=== PATIENT | male | born 1935 | race Caucasian/White ===

== ENCOUNTER 2017-01-30 10:36 | Outpatient (CLI) | payer MEDICARE ==
[2017-01-30 11:25] LABS: #Basophils 0.1 thou/uL (0.0-0.2); #Eosinphils 0.1 thou/uL (0.0-0.7); #Lymphocytes 1.6 thou/uL (1.20-3.40); #Monocytes 0.8 thou/uL (0.11-0.59); #Neutrophils 4.3 thou/uL (1.40-6.50); %Basophils 1.4 % (0.0-1.0); %Eosinophils 1.7 % (0.0-10.0); %Lymphocytes 23.3 % (21.0-51.0); %Neutrophils 61.6 % (42.0-75.0); Hemoglobin 15.1 g/dL (14.0-18.0); Mean Corpuscular HGB CONC 34.1 g/dL (32.0-36.0); Mean Corpuscular Hemoglobin 30.4 pg (27.0-31.0); Mean Corpuscular Volume 88.9 fl (80.0-94.0); Mean Platelet Volume 7.2 fL (7.4-10.4); Platelet Count 210 thou/uL (130-400); RBC Distribution Width 13.1 % (11.5-14.5); Red Blood Cell (RBC) Count 4.96 mill/uL (4.70-6.10)
[2017-01-30 11:30] LABS: ALT (SGPT) 12 U/L (8-55); AST (SGOT) 15 U/L (5-34); Albumin 4.1 g/dL (3.4-4.8); Alkaline Phosphatase 82 U/L (40-150); Anion Gap 14 mmol/L (10-20); BUN (Urea Nitrogen) 24 mg/dL (8.4-25.7); Bilirubin, Total 0.6 mg/dL (0.2-1.2); Calc. Creatinine Clearance 0 mL/min (70-130); Calcium 9.3 mg/dL (7.8-10.44); Carbon Dioxide 23 mmol/L (23-31); Cardiac Risk 4.3 (Less than 4.5); Chloride 109 mmol/L (98-107); Cholesterol 182 mg/dL (< 200 Desired); Estimated GFR-MDRD 41; Glucose 77 mg/dL (83-110); HDL Cholesterol 42 mg/dL (>60 Neg Risk); LDL Cholesterol, Calculated 122 mg/dL; Potassium 4.3 mmol/L (3.5-5.1); Protein, Total 7.1 g/dL (5.8-8.1); Sodium 142 mmol/L (136-145); Triglycerides 90 mg/dL (Less than 150)
== END 2017-01-30 10:37 | disposition home or self-care (01) ==
LOC: HPCALD 10:36
PROVIDERS: ATTEND Family Medicine
DX: I10 Essential (primary) hypertension (principal); E78.2 Mixed hyperlipidemia
CPT/HCPCS: 36415; 80053; 80061; 84443; 85025

== ENCOUNTER 2017-04-17 16:32 | Outpatient (CLI) | payer MEDICARE ==
[2017-04-17 17:01] LABS: #Basophils 0.1 thou/uL (0.0-0.2); #Eosinphils 0.1 thou/uL (0.0-0.7); #Lymphocytes 1.6 thou/uL (1.20-3.40); #Neutrophils 5.1 thou/uL (1.40-6.50); %Basophils 1.5 % (0.0-1.0); %Eosinophils 1.8 % (0.0-10.0); %Lymphocytes 19.8 % (21.0-51.0); %Monocytes 12.7 % (0.0-10.0); %Neutrophils 64.2 % (42.0-75.0); Hemoglobin 14.3 g/dL (14.0-18.0); Mean Corpuscular HGB CONC 33.6 g/dL (32.0-36.0); Mean Corpuscular Hemoglobin 29.5 pg (27.0-31.0); Mean Corpuscular Volume 87.7 fl (80.0-94.0); Platelet Count 230 thou/uL (130-400); RBC Distribution Width 11.9 % (11.5-14.5); Red Blood Cell (RBC) Count 4.85 mill/uL (4.70-6.10)
[2017-04-17 17:52] LABS: ALT (SGPT) 16 U/L (8-55); AST (SGOT) 15 U/L (5-34); Albumin 4.3 g/dL (3.4-4.8); Alkaline Phosphatase 67 U/L (40-150); Anion Gap 17 mmol/L (10-20); BUN (Urea Nitrogen) 27 mg/dL (8.4-25.7); Bilirubin, Total 0.8 mg/dL (0.2-1.2); Calc. Creatinine Clearance 0 mL/min (70-130); Calcium 9.7 mg/dL (7.8-10.44); Carbon Dioxide 25 mmol/L (23-31); Chloride 104 mmol/L (98-107); Estimated GFR-MDRD 31; Globulin 3.1 g/dL (2.4-3.5); Glucose 89 mg/dL (83-110); Potassium 4.6 mmol/L (3.5-5.1); Protein, Total 7.4 g/dL (5.8-8.1); Sodium 141 mmol/L (136-145)
--- NOTE | 2017-04-18 07:45 | RAD ---
CHEST TWO VIEWS 04/17/17 Comparison is made with a 02/16/16 study from [facility]. The heart is normal in size and the lungs are clear. No infiltrate or effusion was seen. The mediast inum was unremarkable. Moderate degenerative changes are present in the thoracic spine. IMPRESSION: Stable exam showing no acute finding. POS: HOME
== END 2017-04-17 16:33 | disposition home or self-care (01) ==
LOC: BUREKG 16:32
PROVIDERS: ATTEND Family Medicine
DX: Z01.818 Encounter for other preprocedural examination (principal)
CPT/HCPCS: 36415; 71020; 80053; 85025

== ENCOUNTER 2017-04-24 09:21 | Outpatient (CLI) | payer MEDICARE ==
[2017-04-24 10:28] LABS: Anion Gap 13 mmol/L (10-20); BUN (Urea Nitrogen) 24 mg/dL (8.4-25.7); BUN/Creatinine Ratio 12.24; Calc. Creatinine Clearance 0 mL/min (70-130); Calcium 9.3 mg/dL (7.8-10.44); Carbon Dioxide 25 mmol/L (23-31); Chloride 107 mmol/L (98-107); Estimated GFR-MDRD 33; Glucose 97 mg/dL (83-110); Potassium 5.1 mmol/L (3.5-5.1); Sodium 140 mmol/L (136-145)
[2017-04-24 10:41] LABS: PSA-Symptomatic (DIAGNOSTIC) 10.56 ng/mL (0-4.0); Vitamin D, 25 Hydroxy 60.9 ng/ml (> 30.0)
--- NOTE | 2017-04-24 17:36 | ULT ---
BILATERAL RENAL ULTRASOUND 04/24/17 Ultrasonography of the kidneys was performed. No mass or hydronephrosis was seen in either. Cortex w as ample around each. The right kidney measured 9.6 x 4.3 x 3.5 cm and the left measured 10.2 x 5.5 x 4.6 cm. Images through the urinary bladder showed bilateral ureteral jets. The prostate is quite large and v ken irregular. The technologist measured it at 10.2 x 7.7 x 8.6 cm. Given the somewhat irregular timmy ure of its features, further investigation would be in order. IMPRESSION: 1. No significant renal findings. 2. Markedly enlarged, irregular prostate. Followup recommended. Code T POS: HOME
[2017-04-24 18:07] LABS: Phosphorus 3.1 mg/dL (2.3-4.7)
[2017-04-24 18:24] LABS: Creatinine, Urine 69.2 mg/dL (63-166); Microalbumin/Creat Ratio 187.9 mg/g (Less than 30)
== END 2017-04-24 09:22 | disposition home or self-care (01) ==
LOC: BURULT 09:21
PROVIDERS: ATTEND Family Medicine
DX: N18.3 Chronic kidney disease, stage 3 (moderate) (principal); R97.20 Elevated prostate specific antigen [PSA]; N40.0 Benign prostatic hyperplasia without lower urinary tract symptoms
CPT/HCPCS: 36415; 76770; 80069; 82043; 82306; 83970; 84153; 84165; 84166

== ENCOUNTER 2017-05-31 13:40 | Inpatient (IN) | payer MEDICARE ==
[2017-05-31 14:08] LABS: #Basophils 0.1 thou/uL (0.0-0.2); #Eosinphils 0.1 thou/uL (0.0-0.7); #Lymphocytes 1.5 thou/uL (1.20-3.40); #Monocytes 1.6 thou/uL (0.11-0.59); #Neutrophils 9.6 thou/uL (1.40-6.50); %Basophils 0.9 % (0.0-1.0); %Eosinophils 0.7 % (0.0-10.0); %Lymphocytes 11.4 % (21.0-51.0); %Monocytes 12.1 % (0.0-10.0); %Neutrophils 74.8 % (42.0-75.0); Hemoglobin 12.5 g/dL (14.0-18.0); Mean Corpuscular HGB CONC 32.5 g/dL (32.0-36.0); Mean Corpuscular Hemoglobin 29.1 pg (27.0-31.0); Mean Corpuscular Volume 89.7 fl (80.0-94.0); Mean Platelet Volume 6.2 fL (7.4-10.4); Platelet Count 282 thou/uL (130-400); RBC Distribution Width 12.1 % (11.5-14.5); Red Blood Cell (RBC) Count 4.29 mill/uL (4.70-6.10); White Blood Cell (WBC) Count 12.8 thou/uL (4.8-10.8)
[2017-05-31 14:23] LABS: ALT (SGPT) 22 U/L (8-55); AST (SGOT) 21 U/L (5-34); Albumin 3.6 g/dL (3.4-4.8); Alkaline Phosphatase 72 U/L (40-150); Anion Gap 15 mmol/L (10-20); BUN (Urea Nitrogen) 26 mg/dL (8.4-25.7); Bilirubin, Total 0.5 mg/dL (0.2-1.2); Calc. Creatinine Clearance 0 mL/min (70-130); Calcium 9.6 mg/dL (7.8-10.44); Carbon Dioxide 30 mmol/L (23-31); Chloride 97 mmol/L (98-107); Estimated GFR-MDRD 35; Globulin 3.9 g/dL (2.4-3.5); Glucose 88 mg/dL (83-110); Potassium 3.2 mmol/L (3.5-5.1); Protein, Total 7.5 g/dL (5.8-8.1); Sodium 139 mmol/L (136-145)
[2017-05-31 14:25] LABS: CKMB 0.9 ng/mL (0-6.6); Troponin I 0.026 ng/mL (< 0.028)
[2017-05-31] MEDS ORDERED: Melatonin 3 MG TAB PO PRN (18:04)
[2017-05-31] MEDS: Acetaminophen 325 MG TAB PO PRN (18:31)
--- NOTE | 2017-05-31 19:52 | RAD ---
PORTABLE CHEST 05/31/17 An AP portable film at 1356 is compared with a 04/17/17 study. An infiltrate is present in the right lung base. There is some mild increase in size of the hilum wh ich may be due to adenopathy, but other studies would be needed to confirm it. The left lung is donna r. The upper lobes are clear. The heart is normal in size. There are no large effusions or congestiv e changes. IMPRESSION: New right basilar infiltrate consistent with pneumonia. Code T POS: HOME
[2017-05-31] MEDS: Atorvastatin Calcium 10 MG TAB PO SCH (20:36)
[2017-05-31] MEDS: [UNRECOGNIZED DRUG - OTHER] PO SCH (20:39)
[2017-06-01 06:17] LABS: #Basophils 0.1 thou/uL (0.0-0.2); #Eosinphils 0.1 thou/uL (0.0-0.7); #Lymphocytes 0.8 thou/uL (1.20-3.40); #Monocytes 1.1 thou/uL (0.11-0.59); #Neutrophils 9.1 thou/uL (1.40-6.50); %Basophils 0.6 % (0.0-1.0); %Eosinophils 0.7 % (0.0-10.0); %Lymphocytes 7.3 % (21.0-51.0); %Monocytes 10.2 % (0.0-10.0); %Neutrophils 81.2 % (42.0-75.0); Hemoglobin 11.6 g/dL (14.0-18.0); Mean Corpuscular Hemoglobin 29.5 pg (27.0-31.0); Mean Corpuscular Volume 89.3 fl (80.0-94.0); Mean Platelet Volume 6.2 fL (7.4-10.4); Platelet Count 275 thou/uL (130-400); RBC Distribution Width 12.4 % (11.5-14.5); Red Blood Cell (RBC) Count 3.92 mill/uL (4.70-6.10); White Blood Cell (WBC) Count 11.2 thou/uL (4.8-10.8)
[2017-06-01 06:46] LABS: Anion Gap 17 mmol/L (10-20); BUN (Urea Nitrogen) 23 mg/dL (8.4-25.7); Calc. Creatinine Clearance 35 mL/min (70-130); Calcium 8.9 mg/dL (7.8-10.44); Carbon Dioxide 28 mmol/L (23-31); Chloride 99 mmol/L (98-107); Estimated GFR-MDRD 41; Glucose 102 mg/dL (83-110); Potassium 3.7 mmol/L (3.5-5.1); Sodium 140 mmol/L (136-145)
[2017-06-01] MEDS ORDERED: Hydrochlorothiazide 25 MG TAB PO SCH (09:00)
[2017-06-01] MEDS: Potassium Chloride 20 MEQ TAB PO SCH (09:01)
[2017-06-01] MEDS: Vitami E (Dl,Tocopheryl Acet) 400 UNITS CAP PO SCH (09:01)
[2017-06-01] MEDS: Multivitamin W/ Minerals 1 TAB PO SCH (09:02)
[2017-06-01] MEDS: Losartan Potassium 50 MG TAB PO SCH (09:02)
[2017-06-01] MEDS: Tamsulosin HCl 0.4 MG CAP PO SCH (09:02)
[2017-06-01] MEDS: Aspirin 81 mg Enteric Coated Tablet PO SCH (09:02)
[2017-06-01] MEDS: [UNRECOGNIZED DRUG - OTHER] PO SCH ×2 (09:16→22:20)
[2017-06-01] MEDS: Benzonatate 100 MG CAP PO PRN ×2 (10:56→20:18)
--- NOTE | 2017-06-01 13:08 | PRG ---
DATE OF SERVICE: 06/01/2017 PRIMARY CARE PHYSICIAN: Dr. Jacinta Srivastava. SUBJECTIVE: The patient is still having persistent semi-productive cough, breathing gets labored af ter coughing spells. He did not sleep very well due to his coughing. He is still on O2 at 3 liters with saturation of 92%. Oxygen dropped to 87% on room air when he ambulated to the bathroom. He a dmits to bilateral lower extremity swelling for the past several days. He denies any chest pain. A ppetite is at baseline. OBJECTIVE: VITAL SIGNS: Blood pressure of 170/64, O2 sat 91% at 3 liters, RR of 16, heart rate of 75, temperat ure of 98.6. GENERAL: Patient is alert, oriented, in mild respiratory distress. HEENT: Normocephalic, atraumatic. Pupils equally reactive to light. NECK: Supple. Negative for lymphadenopathy. Negative for JVD. CHEST AND LUNGS: Symmetrical expansion. Good breath sounds on the left upper and lower lung farley . Decreased breath sounds on the right upper lung farley. No breath sounds on the right lower lung farley. HEART: Regular rate and rhythm. Negative for murmur. ABDOMEN: Flat, soft, nontender, normoactive bowel sounds. EXTREMITIES: Positive for grade I to II edema on both lower extremities. Equal range of motion. NEUROLOGIC: Oriented x3. PSYCHIATRIC: Appropriate affect and demeanor. LABORATORY DATA: WBC of 11.2, hemoglobin of 11.6, hematocrit of 35.9, platelets of 275. BMP: Sodium of 140, potassium 3.7, BUN of 23, creatinine of 1.63, GFR of 41%, glucose 102, calcium of 8.9. ASSESSMENT: 1. Right lower lobe pneumonia. 2. Hypoxemia, requiring O2 supplementation. 3. Hypertension, uncontrolled. 4. Elevated BNP. 5. History of cerebrovascular accident. 6. Hyperlipidemia. 7. Chronic kidney disease stage 3 with renal function of 39%. PLAN: 1. Continue present IV Levaquin 750 mg IV q.48 h., renal dose. 2. Continue supplementation of oxygen to maintain saturation above 91%. Increase HCTZ to 25 mg marlen ly, recheck renal function in a.m. 3. Continue present breathing treatments. 4. Start Tessalon Perles q.4 h. p.r.n. for cough. 5. Continue rest of medications. 6. Start physical therapy. 7. Weak, to address physical deconditioning.
[2017-06-01] MEDS: Acetaminophen 325 MG TAB PO PRN (13:41)
[2017-06-01 18:20] VITALS: BMI 21.4
[2017-06-01] MEDS: Atorvastatin Calcium 10 MG TAB PO SCH (20:18)
[2017-06-01] MEDS: Docusate 100 MG CAP PO SCH (20:18)
[2017-06-02] MEDS ORDERED: Benzonatate 100 MG CAP ONE ×2 (08:03→17:26)
[2017-06-02] MEDS: Benzonatate 100 MG CAP PO PRN ×2 (08:05→17:35)
[2017-06-02] MEDS: Vitami E (Dl,Tocopheryl Acet) 400 UNITS CAP PO SCH (08:51)
[2017-06-02] MEDS: Losartan Potassium 50 MG TAB PO SCH (08:51)
[2017-06-02] MEDS: Potassium Chloride 20 MEQ TAB PO SCH (08:53)
[2017-06-02] MEDS: Hydrochlorothiazide 25 MG TAB PO SCH (08:53)
[2017-06-02] MEDS: Multivitamin W/ Minerals 1 TAB PO SCH (08:53)
[2017-06-02] MEDS: Docusate 100 MG CAP PO SCH ×2 (08:54→20:47)
[2017-06-02] MEDS: Aspirin 81 mg Enteric Coated Tablet PO SCH (08:54)
[2017-06-02] MEDS: [UNRECOGNIZED DRUG - OTHER] PO SCH ×2 (08:55→20:48)
[2017-06-02] MEDS: Tamsulosin HCl 0.4 MG CAP PO SCH (08:55)
--- NOTE | 2017-06-02 09:12 | RAD ---
CHEST 2 VIEWS: DATE: 06/02/17. FINDINGS: The right basilar infiltrate is still present but has improved since 05/31/17. There is a minor amoun t of left basilar streaking. The upper lobes are clear. The cardiac size is unchanged. The lungs are hyperexpanded. IMPRESSION: Improving right basilar pneumonia. POS: HOME
[2017-06-02] MEDS: Phenergan/Codeine 10-6.25mg/5ml UDCUP PO PRN ×2 (14:13→20:50)
[2017-06-02] MEDS: Atorvastatin Calcium 10 MG TAB PO SCH (20:47)
--- NOTE | 2017-06-02 21:23 | PRG ---
DATE OF SERVICE: 06/02/2017 SUBJECTIVE: The patient is unable to get rest and sleep due to intractable coughing. He did not ge t his cough suppressant yesterday. Tessalon Perles is not helping his cough. He is still requiring O2. He denies fever. Breathing has slightly improved. OBJECTIVE: VITAL SIGNS: Blood pressure of 189/79, pulse of 75, respiratory rate of 21, O2 sat 92% at 3 L. GENERAL: The patient is alert, oriented, in mild respiratory distress. HEENT: Normocephalic, atraumatic. Pupils are equally reactive to light. NECK: Supple. Negative for lymphadenopathy. CHEST AND LUNGS: Symmetrical expansion. Good breath sounds on upper lung farley, slightly decrease d breath sounds on the right lower lung farley. HEART: Regular rate and rhythm. Negative for murmur. ABDOMEN: Flat, soft, nontender, normoactive bowel sounds. EXTREMITIES: Positive for grade +1 edema on both lower extremities. Good range of motion. NEUROLOGIC: Oriented x3. PSYCHIATRIC: Appropriate affect and demeanor. IMAGING: Chest x-ray showed right basilar infiltrate with noticeable improvement compared imaging o n 05/31/2017. Minor amount of left basilar streaking. The upper lobes are clear. ASSESSMENT: 1. Right lower lobe pneumonia. 2. Hypoxemia, requiring O2 supplementation. 3. Hypertension, uncontrolled. 4. Elevated BNP. 5. History of cerebrovascular accident. 6. Hyperlipidemia. 7. Chronic kidney disease stage 3 with renal function of 39%. PLAN: 1. Continue present IV Levaquin 750 mg IV every 48 hours, renal dose. 2. Continue supplementation with O2 to maintain saturation above 91%. 3. Continue present blood pressure medications, we will continue to monitor. Recheck renal functio n in a.m. since we had increased his HCTZ to optimize blood pressure control. 4. Continue present breathing treatments. 5. We will order some cough suppressant on outside pharmacy since Tessalon Perles are not relieving his cough. We will start physical therapy on Saturday or Saturday to address any physical decondition ing. 6. Case management to help with discharge planning.
[2017-06-03] MEDS: Multivitamin W/ Minerals 1 TAB PO SCH (09:31)
[2017-06-03] MEDS: Tamsulosin HCl 0.4 MG CAP PO SCH (09:33)
[2017-06-03] MEDS: Aspirin 81 mg Enteric Coated Tablet PO SCH (09:36)
[2017-06-03] MEDS: Potassium Chloride 20 MEQ TAB PO SCH (09:36)
[2017-06-03] MEDS: Hydrochlorothiazide 25 MG TAB PO SCH (09:36)
[2017-06-03] MEDS: Docusate 100 MG CAP PO SCH (09:36)
[2017-06-03] MEDS: [UNRECOGNIZED DRUG - OTHER] PO SCH (09:40)
[2017-06-03] MEDS: Losartan Potassium 50 MG TAB PO SCH (10:01)
[2017-06-03 10:21] VITALS: BP 158/73
[2017-06-03 11:11] VITALS: TEMP 98.2
--- NOTE | 2017-06-03 23:40 | DIS ---
DATE OF ADMISSION: 05/31/2017 DATE OF DISCHARGE: 06/03/2017 PRIMARY CARE PHYSICIAN: Jacinta Srivastava D.O. DISCHARGE ATTENDING: aMrtine Ng M.D. FINAL DIAGNOSES: 1. Right lower lobe pneumonia. 2. Hypoxemia, requiring O2. 3. Hypertension. 4. Elevated BNP. 5. History of cerebrovascular accident. 6. Hyperlipidemia. 7. Chronic kidney disease stage III with renal function of 39%. HISTORY OF PRESENT ILLNESS AND COURSE IN THE FRAUSTO: Mr. Roman is a pleasant 81-year-old g entleman with history of hypertension, CVA, and hyperlipidemia, presented to the emergency room on 05/31 complaining of worsening productive cough with associated shortness of breath, fever, not allev iated by [id number] medication. His symptoms have been going on for the past 4 days prior to admission. On evaluation, his initial vital signs showed blood pressure 157/66, pulse of 58, respir atory rate of 18. He was satting at 84% on room air. His lung findings demonstrated presence of rh onchi on both lower lobes. His chest x-ray demonstrated infiltrate present on the right lung base, presence of a mild increase in the size of the hilum, likely secondary to adenopathy, consistent fin ding for right basilar pneumonia. His labs showed WBC of 12.8, hemoglobin of 12.5, hematocrit of 38 .5, platelet count of 282. His sodium was 139, potassium of 3.2, chloride of 97, BUN of 26, creatin ine of 1.84. BNP of 516. Patient was started on Levaquin 750 mg as loading dose. During his stay, patient complained of intractable coughing, not elevated with Tessalon Perles. We started prometha zine with codeine, but with very minimal relief, patient still requires oxygen supplementation. He is maintaining his saturation between 91-93%. The patient is not running fever or chills. He denie s any chest pain, but still admits to shortness of breath after coughing spells. Patient will [facility] tr [facility]red today to [facility] for IV antibiotics for treatment of right lower lobe pneumon ia. We will address his physical deconditioning with physical and occupational therapy. DISCHARGE MEDICATIONS: 1. Levaquin 750 mg per IV every 48 hours, renal dose. 2. Tylenol 650 mg every 6 hours p.r.n. for pain. 3. DuoNeb q.i.d. 4. Amlodipine 10 mg daily. 5. Aspirin 81 mg daily. 6. Lipitor 20 mg daily. 7. Tessalon Perles 100 mg every 4 hours. 8. Promethazine with codeine 5 mL q.6 hours p.r.n. 9. Protonix 40 mg daily. 10. Metoprolol 25 mg b.i.d. 11. Losartan 100 mg daily. 12. Melatonin 6 mg at bedtime p.r.n. for insomnia. 13. Colace 100 mg p.o. b.i.d. p.r.n. for constipation. 14. O2 at 2-3 liters to maintain sats above 91%. DISPOSITION: Transfer to [facility] with physical and occupational therapy, PLAN: 1. CBC and BMP in a.m. 2. Transfer of care to Dr. Srivastava in a.m.
== END 2017-06-03 14:37 | DRG 195 ==
LOC: BURERS 13:40 → BURMED 15:13
PROVIDERS: ADMIT Family Medicine; ATTEND Family Medicine
DX: J18.1 Lobar pneumonia, unspecified organism (principal); N18.3 Chronic kidney disease, stage 3 (moderate); I69.30 Unspecified sequelae of cerebral infarction; I12.9 Hypertensive chronic kidney disease with stage 1 through stage 4 chronic kidney disease, or unspecified chronic kidney disease; R09.02 Hypoxemia; E78.5 Hyperlipidemia, unspecified; R60.0 Localized edema; R79.89 Other specified abnormal findings of blood chemistry; Z79.2 Long term (current) use of antibiotics
CPT/HCPCS: 36415; 71010; 71020; 80048; 80053; 82553; 83880; 84484; 85025; 87040; 93005; 94640; A4216; J1956; J7620

== ENCOUNTER 2017-06-03 14:35 | Inpatient (IN) | payer MEDICARE ==
[2017-06-03] MEDS ORDERED: Acetaminophen 325 MG TAB PO PRN (15:07)
[2017-06-03] MEDS ORDERED: Melatonin 3 MG TAB PO PRN (15:08)
[2017-06-03] MEDS ORDERED: Bisacodyl 10 MG SUPP PR PRN (15:13)
[2017-06-03] MEDS: Docusate 100 MG CAP PO SCH (20:28)
[2017-06-03] MEDS: Atorvastatin Calcium 10 MG TAB PO SCH (20:28)
[2017-06-03] MEDS: [UNRECOGNIZED DRUG - OTHER] PO SCH (20:49)
[2017-06-03] MEDS: Phenergan/Codeine 10-6.25mg/5ml UDCUP PO PRN (22:05)
[2017-06-04 06:05] LABS: Anion Gap 17 mmol/L (10-20); BUN (Urea Nitrogen) 22 mg/dL (8.4-25.7); Calc. Creatinine Clearance 33 mL/min (70-130); Calcium 9.6 mg/dL (7.8-10.44); Carbon Dioxide 24 mmol/L (23-31); Chloride 99 mmol/L (98-107); Estimated GFR-MDRD 38; Glucose 106 mg/dL (83-110); Potassium 4.2 mmol/L (3.5-5.1); Sodium 136 mmol/L (136-145)
[2017-06-04 06:19] LABS: #Basophils 0.2 thou/uL (0.0-0.2); #Eosinphils 0.2 thou/uL (0.0-0.7); #Lymphocytes 1.1 thou/uL (1.20-3.40); #Monocytes 1.3 thou/uL (0.11-0.59); #Neutrophils 10.4 thou/uL (1.40-6.50); %Basophils 1.4 % (0.0-1.0); %Eosinophils 1.2 % (0.0-10.0); %Lymphocytes 8.6 % (21.0-51.0); %Monocytes 9.7 % (0.0-10.0); Hemoglobin 12.3 g/dL (14.0-18.0); Mean Corpuscular HGB CONC 33.9 g/dL (32.0-36.0); Mean Corpuscular Volume 88.5 fl (80.0-94.0); Mean Platelet Volume 5.4 fL (7.4-10.4); Platelet Count 359 thou/uL (130-400); RBC Distribution Width 12.2 % (11.5-14.5); White Blood Cell (WBC) Count 13.1 thou/uL (4.8-10.8)
[2017-06-04] MEDS: Tamsulosin HCl 0.4 MG CAP PO SCH (08:43)
[2017-06-04] MEDS: Losartan Potassium 50 MG TAB PO SCH (08:45)
[2017-06-04] MEDS: guaiFENesin ER 600 MG TAB PO SCH ×2 (08:45→20:53)
[2017-06-04] MEDS: Potassium Chloride 20 MEQ TAB PO SCH (08:46)
[2017-06-04] MEDS: Multivitamin W/ Minerals 1 TAB PO SCH (08:46)
[2017-06-04] MEDS: Hydrochlorothiazide 25 MG TAB PO SCH (08:46)
[2017-06-04] MEDS: Docusate 100 MG CAP PO SCH ×2 (08:47→20:53)
[2017-06-04] MEDS: Aspirin 81 mg Enteric Coated Tablet PO SCH (08:47)
[2017-06-04] MEDS: Polyethylene Glycol 3350 17 GM Packet PO PRN (08:51)
[2017-06-04] MEDS: [UNRECOGNIZED DRUG - OTHER] PO SCH ×2 (08:53→21:00)
[2017-06-04] MEDS: Phenergan/Codeine 10-6.25mg/5ml UDCUP PO PRN ×3 (09:15→22:28)
[2017-06-04] MEDS: Vitami E (Dl,Tocopheryl Acet) 400 UNITS CAP PO SCH (09:16)
[2017-06-04] MEDS: Atorvastatin Calcium 10 MG TAB PO SCH (20:53)
[2017-06-05 06:33] LABS: #Basophils 0.2 thou/uL (0.0-0.2); #Eosinphils 0.2 thou/uL (0.0-0.7); #Monocytes 1.1 thou/uL (0.11-0.59); #Neutrophils 10.3 thou/uL (1.40-6.50); %Basophils 1.4 % (0.0-1.0); %Eosinophils 1.2 % (0.0-10.0); %Lymphocytes 7.8 % (21.0-51.0); %Monocytes 8.9 % (0.0-10.0); %Neutrophils 80.7 % (42.0-75.0); Hemoglobin 12.2 g/dL (14.0-18.0); Mean Corpuscular HGB CONC 33.2 g/dL (32.0-36.0); Mean Corpuscular Hemoglobin 29.4 pg (27.0-31.0); Mean Corpuscular Volume 88.7 fl (80.0-94.0); Mean Platelet Volume 5.3 fL (7.4-10.4); Platelet Count 390 thou/uL (130-400); RBC Distribution Width 12.3 % (11.5-14.5); Red Blood Cell (RBC) Count 4.13 mill/uL (4.70-6.10); White Blood Cell (WBC) Count 12.8 thou/uL (4.8-10.8)
[2017-06-05 06:40] LABS: Anion Gap 15 mmol/L (10-20); BUN (Urea Nitrogen) 28 mg/dL (8.4-25.7); Calc. Creatinine Clearance 28 mL/min (70-130); Calcium 9.4 mg/dL (7.8-10.44); Carbon Dioxide 26 mmol/L (23-31); Chloride 99 mmol/L (98-107); Estimated GFR-MDRD 32; Glucose 104 mg/dL (83-110); Potassium 4.8 mmol/L (3.5-5.1); Sodium 135 mmol/L (136-145)
--- NOTE | 2017-06-05 07:24 | RAD ---
CHEST 2 VIEWS: Date: 06/05/17 Comparison is made with the 06/02/17 study. The right basilar pneumonia still has residual findings. There are portions that have cleared slight ly in the last few days. Changes are more substantial since the earlier films, but only slight since the 06/02/17 study. The upper lobes remain clear. Some minor left basilar streaking is seen, but no different than before. The cardiac size is stable. IMPRESSION: Minimal change since 06/02/17. POS: HOME
[2017-06-05] MEDS: guaiFENesin ER 600 MG TAB PO SCH ×2 (08:11→21:01)
[2017-06-05] MEDS: Multivitamin W/ Minerals 1 TAB PO SCH (08:12)
[2017-06-05] MEDS: Docusate 100 MG CAP PO SCH ×2 (08:12→21:01)
[2017-06-05] MEDS: Hydrochlorothiazide 25 MG TAB PO SCH (08:13)
[2017-06-05] MEDS: Aspirin 81 mg Enteric Coated Tablet PO SCH (08:13)
[2017-06-05] MEDS: Potassium Chloride 20 MEQ TAB PO SCH (08:14)
[2017-06-05] MEDS: Tamsulosin HCl 0.4 MG CAP PO SCH (08:15)
[2017-06-05] MEDS: Losartan Potassium 50 MG TAB PO SCH (08:15)
[2017-06-05] MEDS: Vitami E (Dl,Tocopheryl Acet) 400 UNITS CAP PO SCH (08:16)
[2017-06-05] MEDS: Milk Of Magnesia 30 ML UDCUP PO PRN (08:31)
[2017-06-05] MEDS: Polyethylene Glycol 3350 17 GM Packet PO PRN (08:31)
[2017-06-05] MEDS: [UNRECOGNIZED DRUG - OTHER] PO SCH ×2 (09:17→21:06)
[2017-06-05] MEDS: Phenergan/Codeine 10-6.25mg/5ml UDCUP PO PRN ×2 (16:20→22:30)
[2017-06-05] MEDS: Atorvastatin Calcium 10 MG TAB PO SCH (21:01)
[2017-06-06] MEDS: [UNRECOGNIZED DRUG - OTHER] PO SCH ×2 (09:12→20:49)
[2017-06-06] MEDS: Phenergan/Codeine 10-6.25mg/5ml UDCUP PO PRN ×3 (09:13→22:39)
[2017-06-06] MEDS: guaiFENesin ER 600 MG TAB PO SCH ×2 (09:18→20:35)
[2017-06-06] MEDS: Aspirin 81 mg Enteric Coated Tablet PO SCH (09:18)
[2017-06-06] MEDS: Potassium Chloride 20 MEQ TAB PO SCH (09:18)
[2017-06-06] MEDS: Docusate 100 MG CAP PO SCH ×2 (09:18→20:35)
[2017-06-06] MEDS: Multivitamin W/ Minerals 1 TAB PO SCH (09:19)
[2017-06-06] MEDS: Hydrochlorothiazide 25 MG TAB PO SCH (09:19)
[2017-06-06] MEDS: Tamsulosin HCl 0.4 MG CAP PO SCH (09:19)
[2017-06-06] MEDS: Losartan Potassium 50 MG TAB PO SCH (09:19)
[2017-06-06] MEDS: Vitami E (Dl,Tocopheryl Acet) 400 UNITS CAP PO SCH (09:20)
[2017-06-06] MEDS: Polyethylene Glycol 3350 17 GM Packet PO PRN (09:23)
[2017-06-06] MEDS: Piperacillin/Tazobactam 2.25 GM in Sodium Chloride 0.9% 100 ML IVPB SCH ×2 (12:07→17:37)
[2017-06-06] MEDS ORDERED: Benzonatate 100 MG CAP ONE (14:30)
[2017-06-06] MEDS: Benzonatate 100 MG CAP PO PRN (14:33)
[2017-06-06] MEDS: Atorvastatin Calcium 10 MG TAB PO SCH (20:35)
[2017-06-07] MEDS: Piperacillin/Tazobactam 2.25 GM in Sodium Chloride 0.9% 100 ML IVPB SCH ×4 (00:01→17:41)
[2017-06-07] MEDS: Benzonatate 100 MG CAP PO PRN (03:08)
[2017-06-07] MEDS: Phenergan/Codeine 10-6.25mg/5ml UDCUP PO PRN ×2 (06:43→14:59)
[2017-06-07] MEDS: Aspirin 81 mg Enteric Coated Tablet PO SCH (09:03)
[2017-06-07] MEDS: Floranex Packet PO SCH (09:04)
[2017-06-07] MEDS: Multivitamin W/ Minerals 1 TAB PO SCH (09:04)
[2017-06-07] MEDS: Hydrochlorothiazide 25 MG TAB PO SCH (09:05)
[2017-06-07] MEDS: Losartan Potassium 50 MG TAB PO SCH (09:05)
[2017-06-07] MEDS: Potassium Chloride 20 MEQ TAB PO SCH (09:05)
[2017-06-07] MEDS: guaiFENesin ER 600 MG TAB PO SCH ×2 (09:06→20:57)
[2017-06-07] MEDS: Tamsulosin HCl 0.4 MG CAP PO SCH (09:06)
[2017-06-07] MEDS: [UNRECOGNIZED DRUG - OTHER] PO SCH ×2 (09:19→20:55)
[2017-06-07] MEDS: Docusate 100 MG CAP PO SCH ×2 (09:32→20:57)
[2017-06-07] MEDS: Vitami E (Dl,Tocopheryl Acet) 400 UNITS CAP PO SCH (13:36)
[2017-06-07] MEDS: Atorvastatin Calcium 10 MG TAB PO SCH (20:57)
[2017-06-07] MEDS: Milk Of Magnesia 30 ML UDCUP PO PRN (21:25)
[2017-06-08] MEDS: Phenergan/Codeine 10-6.25mg/5ml UDCUP PO PRN ×2 (00:11→22:05)
[2017-06-08] MEDS: Piperacillin/Tazobactam 2.25 GM in Sodium Chloride 0.9% 100 ML IVPB SCH ×5 (00:12→23:47)
[2017-06-08] MEDS: Vitami E (Dl,Tocopheryl Acet) 400 UNITS CAP PO SCH (08:38)
[2017-06-08] MEDS: Losartan Potassium 50 MG TAB PO SCH (08:39)
[2017-06-08] MEDS: Multivitamin W/ Minerals 1 TAB PO SCH (08:40)
[2017-06-08] MEDS: guaiFENesin ER 600 MG TAB PO SCH ×2 (08:41→20:47)
[2017-06-08] MEDS: Tamsulosin HCl 0.4 MG CAP PO SCH (08:41)
[2017-06-08] MEDS: Hydrochlorothiazide 25 MG TAB PO SCH (08:42)
[2017-06-08] MEDS: Aspirin 81 mg Enteric Coated Tablet PO SCH (08:42)
[2017-06-08] MEDS: Potassium Chloride 20 MEQ TAB PO SCH (08:42)
[2017-06-08] MEDS: Floranex Packet PO SCH (08:42)
[2017-06-08] MEDS: Docusate 100 MG CAP PO SCH ×2 (08:43→20:48)
[2017-06-08] MEDS: [UNRECOGNIZED DRUG - OTHER] PO SCH ×2 (08:56→20:51)
[2017-06-08] MEDS: Atorvastatin Calcium 10 MG TAB PO SCH (20:46)
[2017-06-09] MEDS: Piperacillin/Tazobactam 2.25 GM in Sodium Chloride 0.9% 100 ML IVPB SCH (06:05)
[2017-06-09 06:10] LABS: #Basophils 0.3 thou/uL (0.0-0.2); #Eosinphils 0.2 thou/uL (0.0-0.7); #Lymphocytes 1.1 thou/uL (1.20-3.40); #Monocytes 1.1 thou/uL (0.11-0.59); #Neutrophils 8.8 thou/uL (1.40-6.50); %Basophils 2.2 % (0.0-1.0); %Eosinophils 1.6 % (0.0-10.0); %Lymphocytes 9.9 % (21.0-51.0); %Monocytes 9.9 % (0.0-10.0); %Neutrophils 76.4 % (42.0-75.0); Hemoglobin 11.8 g/dL (14.0-18.0); Mean Corpuscular Hemoglobin 29.6 pg (27.0-31.0); Mean Corpuscular Volume 89.9 fl (80.0-94.0); Platelet Count 495 thou/uL (130-400); Red Blood Cell (RBC) Count 3.97 mill/uL (4.70-6.10); White Blood Cell (WBC) Count 11.5 thou/uL (4.8-10.8)
[2017-06-09 07:25] LABS: Anion Gap 15 mmol/L (10-20); BUN (Urea Nitrogen) 30 mg/dL (8.4-25.7); Calc. Creatinine Clearance 29 mL/min (70-130); Calcium 9.4 mg/dL (7.8-10.44); Carbon Dioxide 25 mmol/L (23-31); Chloride 102 mmol/L (98-107); Estimated GFR-MDRD 33; Glucose 95 mg/dL (83-110); Potassium 4.5 mmol/L (3.5-5.1); Sodium 137 mmol/L (136-145)
[2017-06-09] MEDS: Floranex Packet PO SCH (08:56)
[2017-06-09] MEDS: Potassium Chloride 20 MEQ TAB PO SCH (08:59)
[2017-06-09] MEDS: Docusate 100 MG CAP PO SCH ×2 (09:01→21:18)
[2017-06-09] MEDS: Losartan Potassium 50 MG TAB PO SCH (09:02)
[2017-06-09] MEDS: guaiFENesin ER 600 MG TAB PO SCH ×2 (09:03→21:19)
[2017-06-09] MEDS: Polyethylene Glycol 3350 17 GM Packet PO PRN (09:03)
[2017-06-09] MEDS: Multivitamin W/ Minerals 1 TAB PO SCH (09:05)
[2017-06-09] MEDS: Tamsulosin HCl 0.4 MG CAP PO SCH (09:05)
[2017-06-09] MEDS: [UNRECOGNIZED DRUG - OTHER] PO SCH ×2 (09:06→21:45)
[2017-06-09] MEDS: Vitami E (Dl,Tocopheryl Acet) 400 UNITS CAP PO SCH (09:06)
[2017-06-09] MEDS: Hydrochlorothiazide 25 MG TAB PO SCH (09:06)
[2017-06-09] MEDS: Aspirin 81 mg Enteric Coated Tablet PO SCH (09:06)
--- NOTE | 2017-06-09 09:39 | RAD ---
CHEST TWO VIEWS 06/09/2017 COMPARISON: 06/05/2017 FINDINGS: The infiltrate in the right base, medially, has actually worsened a bit in the interval. It is now a bit denser. There is a little left basilar streaking, but it is about the same. The upper lobes are clear. The heart size is normal. If there is any pleural fluid, it is minimal. IMPRESSION: Worsening right basilar infiltrate since 06/05/2017. CODE T POS: HOME
[2017-06-09] MEDS: Azithromycin 500 MG in Sodium Chloride 0.9% 250 ML 250 ML IVPB SCH (11:55)
[2017-06-09] MEDS: cefTRIAXone\\ROCEPHIN 1 GM in Sodium Chloride 0.9% 100 ML IVPB SCH ×2 (14:07→14:52)
[2017-06-09] MEDS ORDERED: hydrOXYzine 25 MG TAB PO PRN (14:29)
[2017-06-09] MEDS ORDERED: hydrOXYzine 25 MG TAB PO SCH (14:30)
[2017-06-09] MEDS: Atorvastatin Calcium 10 MG TAB PO SCH (21:18)
[2017-06-09] MEDS: Nystatin 500,000 UNITS/5 ML UDCUP SSW SCH (21:45)
--- NOTE | 2017-06-09 23:00 | CT ---
CT OF THE THORAX WITHOUT CONTRAST: Date: 06-09-[address] of the chest was performed for evaluation of worsening or pneumonia on plain radiographs. FINDINGS: There are extensive basilar consolidations in both the right lower lobe and the left lower lobe. One is just about as extensive as the other, with the left maybe even being a little greater. The findi ngs are most consistent with pneumonia. There are two or three small spiculated densities along the pleural surface of the right lateral hemithorax and at least one area on the left that is beginning to look similar. While spiculations are often somewhat worrisome, given the multiplicity of findings this may just be a case of sequellae of infection. Smaller masses could easily be obscured by the c onsolidations. No central obstructing lesion was seen to explain the findings. There are no large ef fusions. Arterial sclerosis is seen in the aorta and in the coronary arteries. There is no pericardial effusi on. No mediastinal mass or significant adenopathy was seen. IMPRESSION: 1. Extensive lower lobe consolidations posteriorly. Pneumonia is presumed. I do not know if the stat us of the patient is such that aspiration would be a consideration or not. 2. At least two slightly spiculated pleural densities seen on the right and possibly an early on the left. Probably all part of an infectious process, but overall, it would probably be gonzales to get a f ollow up CT on this patient at some point after aggressive antibiotic treatment. 3. Arterial sclerosis as noted. POS: HOME
[2017-06-10] MEDS: Potassium Chloride 20 MEQ TAB PO SCH (09:29)
[2017-06-10] MEDS: Tamsulosin HCl 0.4 MG CAP PO SCH (09:29)
[2017-06-10] MEDS: Nystatin 500,000 UNITS/5 ML UDCUP SSW SCH ×4 (09:30→21:04)
[2017-06-10] MEDS: Losartan Potassium 50 MG TAB PO SCH (09:30)
[2017-06-10] MEDS: Floranex Packet PO SCH (09:30)
[2017-06-10] MEDS: Aspirin 81 mg Enteric Coated Tablet PO SCH (09:30)
[2017-06-10] MEDS: Docusate 100 MG CAP PO SCH ×2 (09:30→21:05)
[2017-06-10] MEDS: Hydrochlorothiazide 25 MG TAB PO SCH (09:31)
[2017-06-10] MEDS: guaiFENesin ER 600 MG TAB PO SCH ×2 (09:31→21:03)
[2017-06-10] MEDS: Multivitamin W/ Minerals 1 TAB PO SCH (09:31)
[2017-06-10] MEDS: Vitami E (Dl,Tocopheryl Acet) 400 UNITS CAP PO SCH (09:31)
[2017-06-10] MEDS: [UNRECOGNIZED DRUG - OTHER] PO SCH ×2 (09:32→21:05)
[2017-06-10] MEDS: Azithromycin 500 MG in Sodium Chloride 0.9% 250 ML 250 ML IVPB SCH (12:46)
[2017-06-10] MEDS: cefTRIAXone\\ROCEPHIN 1 GM in Sodium Chloride 0.9% 100 ML IVPB SCH (15:01)
[2017-06-10] MEDS: Atorvastatin Calcium 10 MG TAB PO SCH (21:04)
[2017-06-11] MEDS: Phenergan/Codeine 10-6.25mg/5ml UDCUP PO PRN (02:12)
[2017-06-11] MEDS: guaiFENesin ER 600 MG TAB PO SCH ×2 (09:11→21:51)
[2017-06-11] MEDS: Floranex Packet PO SCH (09:12)
[2017-06-11] MEDS: Multivitamin W/ Minerals 1 TAB PO SCH (09:12)
[2017-06-11] MEDS: Docusate 100 MG CAP PO SCH ×2 (09:12→21:52)
[2017-06-11] MEDS: Tamsulosin HCl 0.4 MG CAP PO SCH (09:12)
[2017-06-11] MEDS: Nystatin 500,000 UNITS/5 ML UDCUP SSW SCH ×4 (09:13→21:50)
[2017-06-11] MEDS: Losartan Potassium 50 MG TAB PO SCH (09:13)
[2017-06-11] MEDS: Hydrochlorothiazide 25 MG TAB PO SCH (09:13)
[2017-06-11] MEDS: Aspirin 81 mg Enteric Coated Tablet PO SCH (09:13)
[2017-06-11] MEDS: Potassium Chloride 20 MEQ TAB PO SCH (09:13)
[2017-06-11] MEDS: [UNRECOGNIZED DRUG - OTHER] PO SCH (09:14)
[2017-06-11] MEDS: Vitami E (Dl,Tocopheryl Acet) 400 UNITS CAP PO SCH (09:14)
[2017-06-11 10:21] LABS: #Basophils 0.2 thou/uL (0.0-0.2); #Eosinphils 0.2 thou/uL (0.0-0.7); #Lymphocytes 1.2 thou/uL (1.20-3.40); #Monocytes 1.1 thou/uL (0.11-0.59); #Neutrophils 8.2 thou/uL (1.40-6.50); %Basophils 1.9 % (0.0-1.0); %Eosinophils 2.3 % (0.0-10.0); %Lymphocytes 11.2 % (21.0-51.0); %Monocytes 9.9 % (0.0-10.0); %Neutrophils 74.7 % (42.0-75.0); Hemoglobin 12.4 g/dL (14.0-18.0); Mean Corpuscular HGB CONC 34.2 g/dL (32.0-36.0); Mean Corpuscular Hemoglobin 30.4 pg (27.0-31.0); Mean Corpuscular Volume 88.7 fl (80.0-94.0); Platelet Count 518 thou/uL (130-400); RBC Distribution Width 12.1 % (11.5-14.5); Red Blood Cell (RBC) Count 4.07 mill/uL (4.70-6.10); White Blood Cell (WBC) Count 10.9 thou/uL (4.8-10.8)
[2017-06-11 10:40] LABS: ALT (SGPT) 43 U/L (8-55); AST (SGOT) 24 U/L (5-34); Albumin 3.3 g/dL (3.4-4.8); Alkaline Phosphatase 76 U/L (40-150); Anion Gap 12 mmol/L (10-20); BUN (Urea Nitrogen) 27 mg/dL (8.4-25.7); Bilirubin, Total 0.4 mg/dL (0.2-1.2); Calc. Creatinine Clearance 29 mL/min (70-130); Calcium 9.5 mg/dL (7.8-10.44); Carbon Dioxide 25 mmol/L (23-31); Chloride 102 mmol/L (98-107); Estimated GFR-MDRD 37; Globulin 3.7 g/dL (2.4-3.5); Glucose 113 mg/dL (83-110); Potassium 4.3 mmol/L (3.5-5.1); Sodium 135 mmol/L (136-145)
[2017-06-11] MEDS: cefTRIAXone\\ROCEPHIN 1 GM in Sodium Chloride 0.9% 100 ML IVPB SCH (12:16)
[2017-06-11] MEDS: Azithromycin 500 MG in Sodium Chloride 0.9% 250 ML 250 ML IVPB SCH (13:23)
[2017-06-11] MEDS: CODEINE PO PRN (18:37)
[2017-06-11] MEDS: PROMETHAZINE PO PRN (18:37)
--- NOTE | 2017-06-11 21:14 | RAD ---
CHEST TWO VIEWS: 06/11/17 Comparison is made with the prior chest film of 06/10. The right lower lobe infiltrate has improved in the interval. There is still some infiltrate here an d in the left lower lobe. The upper lobes remain clear. There are no congestive changes or large ple ural effusions. The heart size is normal. Degenerative changes are seen in the spine as usual. IMPRESSION: Improvement in right basilar infiltrates over the last 48 hours. POS: HOME
[2017-06-11] MEDS: Atorvastatin Calcium 10 MG TAB PO SCH (21:52)
[2017-06-12] MEDS: Nystatin 500,000 UNITS/5 ML UDCUP SSW SCH ×4 (10:15→21:02)
[2017-06-12] MEDS: guaiFENesin ER 600 MG TAB PO SCH ×2 (10:16→21:02)
[2017-06-12] MEDS: Potassium Chloride 20 MEQ TAB PO SCH (10:16)
[2017-06-12] MEDS: Docusate 100 MG CAP PO SCH ×2 (10:17→21:03)
[2017-06-12] MEDS: Multivitamin W/ Minerals 1 TAB PO SCH (10:17)
[2017-06-12] MEDS: Hydrochlorothiazide 25 MG TAB PO SCH (10:17)
[2017-06-12] MEDS: Tamsulosin HCl 0.4 MG CAP PO SCH (10:17)
[2017-06-12] MEDS: Losartan Potassium 50 MG TAB PO SCH (10:17)
[2017-06-12] MEDS: Vitami E (Dl,Tocopheryl Acet) 400 UNITS CAP PO SCH (10:18)
[2017-06-12] MEDS: Aspirin 81 mg Enteric Coated Tablet PO SCH (10:18)
[2017-06-12] MEDS: Floranex Packet PO SCH (10:19)
[2017-06-12] MEDS: cefTRIAXone\\ROCEPHIN 1 GM in Sodium Chloride 0.9% 100 ML IVPB SCH (12:47)
[2017-06-12] MEDS: Azithromycin 500 MG in Sodium Chloride 0.9% 250 ML 250 ML IVPB SCH (13:46)
[2017-06-12] MEDS: CODEINE PO PRN ×2 (14:00→21:10)
[2017-06-12] MEDS: PROMETHAZINE PO PRN ×2 (14:00→21:10)
[2017-06-12] MEDS: Atorvastatin Calcium 10 MG TAB PO SCH (21:02)
[2017-06-13] MEDS: Aspirin 81 mg Enteric Coated Tablet PO SCH (09:14)
[2017-06-13] MEDS: guaiFENesin ER 600 MG TAB PO SCH ×2 (09:15→21:12)
[2017-06-13] MEDS: Tamsulosin HCl 0.4 MG CAP PO SCH (09:16)
[2017-06-13] MEDS: Nystatin 500,000 UNITS/5 ML UDCUP SSW SCH ×4 (09:17→21:14)
[2017-06-13] MEDS: Multivitamin W/ Minerals 1 TAB PO SCH (09:17)
[2017-06-13] MEDS: Docusate 100 MG CAP PO SCH ×2 (09:17→21:12)
[2017-06-13] MEDS: Floranex Packet PO SCH (09:17)
[2017-06-13] MEDS: Hydrochlorothiazide 25 MG TAB PO SCH (09:18)
[2017-06-13] MEDS: Potassium Chloride 20 MEQ TAB PO SCH (09:18)
[2017-06-13] MEDS: Losartan Potassium 50 MG TAB PO SCH (09:27)
[2017-06-13] MEDS: Vitami E (Dl,Tocopheryl Acet) 400 UNITS CAP PO SCH (09:28)
[2017-06-13] MEDS: Milk Of Magnesia 30 ML UDCUP PO PRN (09:36)
[2017-06-13] MEDS: cefTRIAXone\\ROCEPHIN 1 GM in Sodium Chloride 0.9% 100 ML IVPB SCH (12:46)
[2017-06-13] MEDS: CODEINE PO PRN ×2 (13:01→21:08)
[2017-06-13] MEDS: PROMETHAZINE PO PRN ×2 (13:01→21:08)
[2017-06-13] MEDS: Azithromycin 500 MG in Sodium Chloride 0.9% 250 ML 250 ML IVPB SCH (14:04)
[2017-06-13] MEDS: Atorvastatin Calcium 10 MG TAB PO SCH (21:12)
[2017-06-14 06:18] LABS: Anion Gap 13 mmol/L (10-20); BUN (Urea Nitrogen) 29 mg/dL (8.4-25.7); Calc. Creatinine Clearance 31 mL/min (70-130); Calcium 9.2 mg/dL (7.8-10.44); Carbon Dioxide 24 mmol/L (23-31); Chloride 103 mmol/L (98-107); Estimated GFR-MDRD 39; Glucose 98 mg/dL (83-110); Potassium 4.2 mmol/L (3.5-5.1); Sodium 136 mmol/L (136-145)
[2017-06-14 07:07] LABS: #Basophils 0.2 thou/uL (0.0-0.2); #Eosinphils 0.3 thou/uL (0.0-0.7); #Lymphocytes 1.1 thou/uL (1.20-3.40); #Monocytes 1.1 thou/uL (0.11-0.59); #Neutrophils 6.4 thou/uL (1.40-6.50); %Basophils 2.3 % (0.0-1.0); %Eosinophils 3.4 % (0.0-10.0); %Lymphocytes 12.6 % (21.0-51.0); %Monocytes 11.6 % (0.0-10.0); %Neutrophils 70.1 % (42.0-75.0); Hemoglobin 12.3 g/dL (14.0-18.0); Mean Corpuscular Hemoglobin 29.7 pg (27.0-31.0); Mean Corpuscular Volume 87.4 fl (80.0-94.0); Mean Platelet Volume 5.3 fL (7.4-10.4); Platelet Count 478 thou/uL (130-400); RBC Distribution Width 11.8 % (11.5-14.5); Red Blood Cell (RBC) Count 4.13 mill/uL (4.70-6.10); White Blood Cell (WBC) Count 9.1 thou/uL (4.8-10.8)
--- NOTE | 2017-06-14 07:34 | RAD ---
CHEST TWO VIEWS 06/14/2017 Comparison is made with a 06/11 study. Changes in the interval are minimal. If anything, the lung b ases seem slightly clearer and do not seem any worse. There is probably a small amount of fluid on the left. The upper lobes remain clear. There are no congestive changes. The heart size is normal. Emphysematous changes are present as usual. IMPRESSION: Minimal change since 06/11, but if there is any change at all, it is slightly for the better. POS: HOME
[2017-06-14] MEDS: Nystatin 500,000 UNITS/5 ML UDCUP SSW SCH ×4 (10:06→20:51)
[2017-06-14] MEDS: Aspirin 81 mg Enteric Coated Tablet PO SCH (10:06)
[2017-06-14] MEDS: guaiFENesin ER 600 MG TAB PO SCH ×2 (10:11→20:54)
[2017-06-14] MEDS: Multivitamin W/ Minerals 1 TAB PO SCH (10:11)
[2017-06-14] MEDS: Floranex Packet PO SCH (10:11)
[2017-06-14] MEDS: Losartan Potassium 50 MG TAB PO SCH (10:11)
[2017-06-14] MEDS: Docusate 100 MG CAP PO SCH ×2 (10:11→20:53)
[2017-06-14] MEDS: Potassium Chloride 20 MEQ TAB PO SCH (10:12)
[2017-06-14] MEDS: Tamsulosin HCl 0.4 MG CAP PO SCH (10:12)
[2017-06-14] MEDS: Vitami E (Dl,Tocopheryl Acet) 400 UNITS CAP PO SCH (10:13)
[2017-06-14] MEDS: Hydrochlorothiazide 25 MG TAB PO SCH (10:13)
[2017-06-14] MEDS: Azithromycin 500 MG in Sodium Chloride 0.9% 250 ML 250 ML IVPB SCH (13:01)
[2017-06-14] MEDS: cefTRIAXone\\ROCEPHIN 1 GM in Sodium Chloride 0.9% 100 ML IVPB SCH (14:56)
[2017-06-14] MEDS: Atorvastatin Calcium 10 MG TAB PO SCH (20:53)
[2017-06-14] MEDS: CODEINE PO PRN (21:02)
[2017-06-14] MEDS: PROMETHAZINE PO PRN (21:02)
[2017-06-15] MEDS: Floranex Packet PO SCH (09:02)
[2017-06-15] MEDS: guaiFENesin ER 600 MG TAB PO SCH ×2 (09:07→20:47)
[2017-06-15] MEDS: Docusate 100 MG CAP PO SCH ×2 (09:07→20:47)
[2017-06-15] MEDS: Tamsulosin HCl 0.4 MG CAP PO SCH (09:08)
[2017-06-15] MEDS: Losartan Potassium 50 MG TAB PO SCH (09:09)
[2017-06-15] MEDS: Potassium Chloride 20 MEQ TAB PO SCH (09:09)
[2017-06-15] MEDS: Hydrochlorothiazide 25 MG TAB PO SCH (09:10)
[2017-06-15] MEDS: Aspirin 81 mg Enteric Coated Tablet PO SCH (09:11)
[2017-06-15] MEDS: Nystatin 500,000 UNITS/5 ML UDCUP SSW SCH ×4 (09:11→20:46)
[2017-06-15] MEDS: Multivitamin W/ Minerals 1 TAB PO SCH (09:15)
[2017-06-15] MEDS: Vitami E (Dl,Tocopheryl Acet) 400 UNITS CAP PO SCH (09:20)
[2017-06-15] MEDS: cefTRIAXone\\ROCEPHIN 1 GM in Sodium Chloride 0.9% 100 ML IVPB SCH (13:31)
[2017-06-15] MEDS: PROMETHAZINE PO PRN (20:46)
[2017-06-15] MEDS: CODEINE PO PRN (20:46)
[2017-06-15] MEDS: Atorvastatin Calcium 10 MG TAB PO SCH (20:47)
[2017-06-16] MEDS: Floranex Packet PO SCH (08:35)
[2017-06-16] MEDS: Potassium Chloride 20 MEQ TAB PO SCH (08:38)
[2017-06-16] MEDS: Docusate 100 MG CAP PO SCH ×2 (08:38→20:41)
[2017-06-16] MEDS: Multivitamin W/ Minerals 1 TAB PO SCH (08:38)
[2017-06-16] MEDS: guaiFENesin ER 600 MG TAB PO SCH ×2 (08:38→20:40)
[2017-06-16] MEDS: Hydrochlorothiazide 25 MG TAB PO SCH (08:39)
[2017-06-16] MEDS: Losartan Potassium 50 MG TAB PO SCH (08:39)
[2017-06-16] MEDS: Aspirin 81 mg Enteric Coated Tablet PO SCH (08:39)
[2017-06-16] MEDS: Tamsulosin HCl 0.4 MG CAP PO SCH (08:39)
[2017-06-16] MEDS: Vitami E (Dl,Tocopheryl Acet) 400 UNITS CAP PO SCH (08:46)
[2017-06-16] MEDS: Nystatin 500,000 UNITS/5 ML UDCUP SSW SCH ×4 (08:53→21:16)
[2017-06-16] MEDS: cefTRIAXone\\ROCEPHIN 1 GM in Sodium Chloride 0.9% 100 ML IVPB SCH (13:07)
[2017-06-16] MEDS: Atorvastatin Calcium 10 MG TAB PO SCH (20:40)
[2017-06-16] MEDS: PROMETHAZINE PO PRN (20:41)
[2017-06-16] MEDS: CODEINE PO PRN (20:41)
[2017-06-17 06:15] VITALS: BP 153/54; TEMP 98.3
[2017-06-17 06:39] LABS: Anion Gap 14 mmol/L (10-20); BUN (Urea Nitrogen) 30 mg/dL (8.4-25.7); Calc. Creatinine Clearance 27 mL/min (70-130); Calcium 9.8 mg/dL (7.8-10.44); Carbon Dioxide 26 mmol/L (23-31); Chloride 104 mmol/L (98-107); Estimated GFR-MDRD 33; Glucose 96 mg/dL (83-110); Potassium 4.7 mmol/L (3.5-5.1); Sodium 139 mmol/L (136-145)
[2017-06-17 07:14] LABS: Hemoglobin 12.4 g/dL (14.0-18.0); Mean Corpuscular HGB CONC 33.2 g/dL (32.0-36.0); Mean Corpuscular Hemoglobin 29.5 pg (27.0-31.0); Mean Corpuscular Volume 88.8 fl (80.0-94.0); Mean Platelet Volume 5.6 fL (7.4-10.4); Platelet Count 443 thou/uL (130-400); RBC Distribution Width 11.9 % (11.5-14.5); Red Blood Cell (RBC) Count 4.19 mill/uL (4.70-6.10); White Blood Cell (WBC) Count 8.5 thou/uL (4.8-10.8)
[2017-06-17 07:56] LABS: Eosinophils 1 % (0-10); Lymphocytes 13 % (21-51); MDiff Complete? YES; Monocytes 11 % (0-10); Neutrophil 74 % (42-75); PLT Morphology Comment Appears Increased; RBC Morphology Normal
[2017-06-17] MEDS: Floranex Packet PO SCH (08:48)
[2017-06-17] MEDS: Aspirin 81 mg Enteric Coated Tablet PO SCH (08:50)
[2017-06-17] MEDS: Docusate 100 MG CAP PO SCH (08:51)
[2017-06-17] MEDS: Losartan Potassium 50 MG TAB PO SCH (08:52)
[2017-06-17] MEDS: Tamsulosin HCl 0.4 MG CAP PO SCH (08:52)
[2017-06-17] MEDS: Potassium Chloride 20 MEQ TAB PO SCH (08:52)
[2017-06-17] MEDS: guaiFENesin ER 600 MG TAB PO SCH (08:52)
[2017-06-17] MEDS: Multivitamin W/ Minerals 1 TAB PO SCH (08:52)
[2017-06-17] MEDS: Hydrochlorothiazide 25 MG TAB PO SCH (08:52)
[2017-06-17] MEDS: Nystatin 500,000 UNITS/5 ML UDCUP SSW SCH (08:53)
[2017-06-17] MEDS: Vitami E (Dl,Tocopheryl Acet) 400 UNITS CAP PO SCH (08:54)
--- NOTE | 2017-06-17 12:37 | RAD ---
CHEST TWO VIEWS 06/17/2017 Comparison is made with the 06/14/2017 study. There are still basilar infiltrates present. For the most part, they are similar to before. No definite new infiltrates were seen. No large effusions were present, but small ones are suggested by blunting of the angles. One still sees infiltrate pos teriorly behind the heart on the lateral view. IMPRESSION: Minor changes since 06/14/2017. POS: HOME
== END 2017-06-17 10:56 | disposition home or self-care (01) | DRG 194 ==
LOC: BURMED 14:35
PROVIDERS: ADMIT Family Medicine; ATTEND Family Medicine
DX: J18.9 Pneumonia, unspecified organism (principal); B37.0 Candidal stomatitis; N18.3 Chronic kidney disease, stage 3 (moderate); R09.02 Hypoxemia; I12.9 Hypertensive chronic kidney disease with stage 1 through stage 4 chronic kidney disease, or unspecified chronic kidney disease; K21.9 Gastro-esophageal reflux disease without esophagitis; E78.5 Hyperlipidemia, unspecified; F32.9 Major depressive disorder, single episode, unspecified; I69.344 Monoplegia of lower limb following cerebral infarction affecting left non-dominant side; Z79.82 Long term (current) use of aspirin
CPT/HCPCS: 36415; 71020; 71250; 80048; 80053; 85025; 87070; 87205; 94640; A4216; G8978-GP-CJ; G8979-GP-CI; G8987-GO-CK; G8988-GO-CI; J0456; J0696; J1956; J2543; J7050; J7620

== ENCOUNTER → 2017-06-19 | Emergency (ER) | payer MEDICARE ==
[2017-06-19 14:28] LABS: #Basophils 0.2 thou/uL (0.0-0.2); #Eosinphils 0.4 thou/uL (0.0-0.7); #Lymphocytes 1.6 thou/uL (1.20-3.40); #Monocytes 0.9 thou/uL (0.11-0.59); #Neutrophils 6.6 thou/uL (1.40-6.50); %Basophils 2.2 % (0.0-1.0); %Eosinophils 3.9 % (0.0-10.0); %Lymphocytes 16.7 % (21.0-51.0); %Monocytes 9.6 % (0.0-10.0); %Neutrophils 67.7 % (42.0-75.0); Hemoglobin 12.8 g/dL (14.0-18.0); Mean Corpuscular HGB CONC 32.7 g/dL (32.0-36.0); Mean Corpuscular Hemoglobin 28.8 pg (27.0-31.0); Platelet Count 429 thou/uL (130-400); RBC Distribution Width 12.4 % (11.5-14.5); Red Blood Cell (RBC) Count 4.46 mill/uL (4.70-6.10); White Blood Cell (WBC) Count 9.8 thou/uL (4.8-10.8)
[2017-06-19 14:42] LABS: ALT (SGPT) 24 U/L (8-55); AST (SGOT) 16 U/L (5-34); Albumin 3.7 g/dL (3.4-4.8); Alkaline Phosphatase 92 U/L (40-150); Anion Gap 15 mmol/L (10-20); BUN (Urea Nitrogen) 42 mg/dL (8.4-25.7); Bilirubin, Total 0.8 mg/dL (0.2-1.2); Calc. Creatinine Clearance 0 mL/min (70-130); Calcium 9.8 mg/dL (7.8-10.44); Carbon Dioxide 25 mmol/L (23-31); Chloride 101 mmol/L (98-107); Estimated GFR-MDRD 27; Globulin 4.1 g/dL (2.4-3.5); Glucose 106 mg/dL (83-110); Potassium 4.4 mmol/L (3.5-5.1); Protein, Total 7.8 g/dL (5.8-8.1); Sodium 137 mmol/L (136-145)
[2017-06-19 14:43] LABS: CKMB 0.6 ng/mL (0-6.6); Troponin I 0.013 ng/mL (< 0.028)
--- NOTE | 2017-06-19 20:28 | RAD ---
PORTABLE CHEST 06/19/17 An AP portable film at 1409 is compared with a 06/17 study. In the interim, the patient has developed a 100% left pneumothorax. The residual lung is collapsed. There is not much sift of the mediastinum at this point, a small amount at most. Some haziness in t he right base may be either atelectasis or the residual pneumonia of the patient. The heart size is about the same considering that this is an AP film. IMPRESSION: Complete left pneumothorax. I checked with the x-ray tech who confirmed that the patient had been transferred. POS: HOME
== END ==
LOC: BURERS 13:50
DX: J18.9 Pneumonia, unspecified organism (principal); R09.02 Hypoxemia; N40.0 Benign prostatic hyperplasia without lower urinary tract symptoms; I10 Essential (primary) hypertension; Z86.73 Personal history of transient ischemic attack (TIA), and cerebral infarction without residual deficits; Z79.82 Long term (current) use of aspirin; Z79.899 Other long term (current) drug therapy
CPT/HCPCS: 36415; 71010; 80053; 82553; 83880; 84484; 85025; 85379; 87040; J7620

== ENCOUNTER 2017-07-15 16:48 | Outpatient (CLI) | payer MEDICARE ==
--- NOTE | 2017-07-15 20:47 | RAD ---
CHEST TWO VIEWS 07/15/17 Comparison is made with the 06/21/17 study. The left pneumothorax has resolved and the chest tube has been removed. There may be some minor scar ring or atelectasis in the left base. There is no substantial fluid. The pneumonia on the right appe ars to have resolved. There is currently no acute infiltrate here. The lungs are mildly hyperexpande d which is probably chronic. The heart size is normal. Calcification is seen in the aortic arch. IMPRESSION: Good resolution since last month's studies. POS: HOME
== END 2017-07-15 16:49 | disposition home or self-care (01) ==
LOC: BURRAD 16:48
PROVIDERS: ATTEND Family Medicine
DX: J18.9 Pneumonia, unspecified organism (principal); J93.9 Pneumothorax, unspecified
CPT/HCPCS: 71020

== ENCOUNTER 2018-03-18 17:09 | Outpatient (CLI) | payer MEDICARE ==
--- NOTE | 2018-03-18 20:08 | RAD ---
CHEST TWO VIEWS 03/18/18 Comparison is made with the 07/15/17 study. There are infiltrates present in both lung bases that were not present before. The upper lobes are cl ear. There are no effusions. The heart size is normal. Dense calcification is seen in the aorta. IMPRESSION: 1. Bibasilar streaking, more so than 2017. Small acute infiltrates are presumed. 2. Arteriosclerosis. Code T POS: HOME
== END 2018-03-18 17:10 | disposition home or self-care (01) ==
LOC: BURRAD 17:09
PROVIDERS: ATTEND Family Medicine
DX: Z01.818 Encounter for other preprocedural examination (principal); I70.0 Atherosclerosis of aorta
CPT/HCPCS: 71046

== ENCOUNTER 2018-05-27 16:52 | Outpatient (CLI) | payer MEDICARE ==
--- NOTE | 2018-05-27 22:26 | RAD ---
CHEST TWO VIEWS: 05/27/18 Comparison is made with the 03/18/18 study. The basilar infiltrates present before have definitely improved. There is some minor residual in the right cardiophrenic angle, but otherwise the areas are now clear. COPD is present with flattening of the diaphragm. The heart size is normal. There are no effusions. IMPRESSION: Lungs clearer than February's study. Minor basilar residual. POS: HOME
== END 2018-05-27 16:53 | disposition home or self-care (01) ==
LOC: BURRAD 16:52
PROVIDERS: ATTEND Family Medicine
DX: Z01.818 Encounter for other preprocedural examination (principal)
CPT/HCPCS: 71046